=== PATIENT | female | born 1990 | race Caucasian/White ===

== ENCOUNTER 2018-01-27 12:12 | Emergency (ER) | payer SELFPAY ==
--- NOTE | 2018-01-27 12:35 | ER Document Report ---
ED Medical Screen (RME) - General Chief Complaint: Chest Pain Stated Complaint: CHEST PAIN Time Seen by Provider: 01/27/18 12:33 Mode of Arrival: Ambulatory Information source: Patient Notes: This is a 27-year-old female that presents to the emergency room with a fast heartbeat, concerns for "white stool" a few times last week. Patient states the fast heart rate started in November and is been persistent. Patient also states she had some right upper quadrant pain a few days ago but none currently. She denies any nausea or vomiting. She denies any shortness of breath. She does state that she has been under a lot of stress lately at work. She is currently on her period. She denies any calf pain, recent travel. There is no family history of heart arrhythmias, sudden . I have greeted and performed a rapid initial assessment of this patient. A comprehensive ED assessment and evaluation of the patient, analysis of test results and completion of medical decision making process we will be contacted by additional ED providers. TRAVEL OUTSIDE OF THE [place] IN LAST 30 DAYS: No - Related Data Allergies/Adverse Reactions: No Known Allergies Allergy (Unverified 01/27/18 12:13) Physical Exam - Vital signs Vitals: Temp Pulse Resp BP Pulse Ox 99.1 F 120 H 18 131/71 H 99 01/27/18 12:22 01/27/18 12:01/27/18 12:01/27/18 12:22 01/27/18 12:22 Course - Vital Signs Vital signs: Temp Pulse Resp BP Pulse Ox 99.1 F 120 H 18 131/71 H 99 01/27/18 12:22 01/27/18 12:22 01/27/18 12:22 01/27/18 12:22 01/27/18 12:22
--- NOTE | 2018-01-27 13:13 | RADIOLOGY REPORT (SQ) ---
EXAM DESCRIPTION: CHEST 2 VIEWS COMPLETED DATE/TIME: 01/27/2018 12:58 pm REASON FOR STUDY: palpitations COMPARISON: None. TECHNIQUE: Frontal and lateral radiographic views of the chest acquired. NUMBER OF VIEWS: Two view. LIMITATIONS: None. FINDINGS: LUNGS AND PLEURA: No opacities, masses or pneumothorax. No pleural effusion. MEDIASTINUM AND HILAR STRUCTURES: No masses or contour abnormalities. HEART AND VASCULAR STRUCTURES: Heart normal size. No evidence for failure. BONES: No acute findings. HARDWARE: None in the chest. OTHER: No other significant finding. IMPRESSION: NO SIGNIFICANT RADIOGRAPHIC FINDING IN THE CHEST. TECHNICAL DOCUMENTATION: JOB ID: [id number] [employer]- All Rights Reserved Reading location - IP/workstation name: [email or web address]
[2018-01-27 13:22] LABS: ABSOLUTE LYMPHOCYTES (AUTO) 1.4 10^3/uL (0.5-4.7); ABSOLUTE MONOCYTES (AUTO) 0.5 10^3/uL (0.1-1.4); ABSOLUTE NEUT (AUTO) 5.4 10^3/uL (1.7-8.2); BASOPHILS % (AUTO) 0.5 % (0-2); EOSINOPHILS % (AUTO) 0.2 % (0-6); HEMATOCRIT 44.2 % (36.0-47.0); HEMOGLOBIN 15.1 g/dL (12.0-15.5); MEAN CORPUSCULAR HEMOGLOBIN 30.8 pg (27.0-33.4); MEAN CORPUSCULAR HGB CONC 34.1 g/dL (32.0-36.0); MEAN CORPUSCULAR VOLUME 91 fl (80-97); MONOCYTES % (AUTO) 6.9 % (3-13); PLATELET COUNT 233 10^3/uL (150-450); RED BLOOD COUNT 4.89 10^6/uL (3.72-5.28); RED CELL DISTRIBUTION WIDTH 12.6 % (11.5-14.0); SEGMENTED NEUTROPHILS % (AUTO) 73.4 % (42-78); TOTAL CELLS COUNTED % (AUTO) 100 %; WHITE BLOOD COUNT 7.4 10^3/uL (4.0-10.5)
[2018-01-27 13:38] LABS: ALANINE AMINOTRANSFERASE 22 U/L (9-52); ALBUMIN 4.6 g/dL (3.5-5.0); ALKALINE PHOSPHATASE 59 U/L (38-126); ANION GAP 13 (5-19); ASPARTATE AMINO TRANSFERASE 15 U/L (14-36); BILIRUBIN,DIRECT 0.2 mg/dL (0.0-0.4); BILIRUBIN,TOTAL 0.9 mg/dL (0.2-1.3); BLOOD UREA NITROGEN 9 mg/dL (7-20); CALCIUM 9.8 mg/dL (8.4-10.2); CARBON DIOXIDE 26 mmol/L (22-30); CHLORIDE 104 mmol/L (98-107); GLUCOSE 100 mg/dL (75-110); POTASSIUM 4.2 mmol/L (3.6-5.0); SODIUM 143.1 mmol/L (137-145); TOTAL PROTEIN 7.5 g/dL (6.3-8.2)
--- NOTE | 2018-01-27 13:40 | ER Document Report ---
ED General - General Chief Complaint: Chest Pain Stated Complaint: CHEST PAIN Time Seen by Provider: 01/27/18 12:33 Mode of Arrival: Ambulatory Information source: Patient, Relative - mother TRAVEL OUTSIDE OF THE [place] IN LAST 30 DAYS: No - HPI Notes: 27-year-old female presents to the ED with complaints of chest pain that radiates to left upper back, shortness of breath, intermittent right blurred vision, dizziness, with RUQ abd pain. Episodes last for approx 6 hours and then resolves. Abd pain worse after eating. Patient also states she has had two white stools 2 days ago, but has since returned to brown, formed stools. Denies any melena. Last menstrual period was 5 days ago, denies . Patient is not taking any medications. Denies any nausea vomiting, denies any fever or chills. Denies cardiac history. Denies fevers, chills, chest pain, palpitations, shortness of breath, dyspnea, nausea, vomiting, diarrhea, abdominal pain, hematuria,blurred vision, double vision, loss of vision, speech changes, LH, dizziness, syncope, headaches, wheezing, ST, URI, neck pain, weakness, bowel or bladder dysfunction, saddle anesthesia, numbness or tingling in bilateral upper or lower extremities equally, muscle paralysis, weakness in bilateral upper or lower extremities equally or rash. Denies IV drug use. - Related Data Allergies/Adverse Reactions: No Known Allergies Allergy (Unverified 01/27/18 12:13) Past Medical History - General Information source: Patient - Social History Smoking Status: Never Smoker Chew tobacco use (# tins/day): No Frequency of alcohol use: Occasional Drug Abuse: None Family History: Reviewed & Not Pertinent Patient has suicidal ideation: No Patient has homicidal ideation: No Renal/ Medical History: Denies: Hx Peritoneal Dialysis Review of Systems - Review of Systems Constitutional: See HPI EENT: No symptoms reported Cardiovascular: See HPI Respiratory: No symptoms reported Gastrointestinal: See HPI Genitourinary: No symptoms reported Female Genitourinary: No symptoms reported Musculoskeletal: No symptoms reported Skin: No symptoms reported Hematologic/Lymphatic: No symptoms reported Neurological/Psychological: No symptoms reported -: Yes All other systems reviewed and negative Physical Exam - Vital signs Vitals: Temp Pulse Resp BP Pulse Ox 99.1 F 120 H 18 131/71 H 99 01/27/18 12:22 06/09/18 12:22 01/27/18 12:22 01/27/18 12:22 01/27/18 12:22 - Notes Notes: PHYSICAL EXAMINATION: GENERAL: Well-appearing, well-nourished and in no acute distress. HEAD: Atraumatic, normocephalic. EYES: Pupils equal round and reactive to light, extraocular movements intact, conjunctiva are normal. ENT: Nares patent, oropharynx clear without exudates. Moist mucous membranes. NECK: Normal range of motion, supple without lymphadenopathy LUNGS: Breath sounds clear to auscultation bilaterally and equal. No wheezes rales or rhonchi. HEART: Sinus Tachycardia and rhythm without murmurs ABDOMEN: Soft, nontender, nondistended abdomen. No guarding, no rebound. No masses appreciated. Female : deferred Musculoskeletal: Normal range of motion, no pitting or edema. No cyanosis. NEUROLOGICAL: Cranial nerves grossly intact. Normal speech, normal gait. Normal sensory, motor exams PSYCH: Normal mood, normal affect. SKIN: Warm, Dry, normal turgor, no rashes or lesions noted. Course - Re-evaluation Re-evalutation: 01/27/18 16:21 27-year-old female presents for evaluation of tachycardia that she has been doing for the last 2 months with complaints of chest pain that was reproducible on examination. CBC negative for any leukocytosis or anemia, d-dimer negative. CMP negative for any renal or hepatic dysfunction, no electrolyte disturbances. Urinalysis shows patient has ketones, otherwise unremarkable. EKG negative for STEMI, cardiac enzymes negative. TSH T3 and T4 all within normal limits. Patient is not taking any control, right upper quadrant on reexamination is not tender, ultrasound right upper quadrant negative for any acute findings per radiology. Case discussed with Dr. Daniel Munguia, ER attending, regarding pertinent HPI, ROS, clinical exam, diagnostic and laboratory findings. After review, unable to cover any etiology for sinus tachycardia. will have patient follow-up with cardiology will start patient on a low-dose metoprolol 12.5 mg to keep her heart rate within normal range. Discussed with patient to follow a low-fat diet, discussed risks of taking metoprolol. All questions and concerns answered by this provider. Discussed with patient to stay hydrated. Patient refused IV fluids due to not wanting to take them, discussed patient that she does have ketones in her urine however this could be due to patient not having anything to eat today. Low risk for TN , PE, dissecting aortic aneurysm, or any other etiologies. Patient has afebrile , vitals stable and in no distress. After performing a Medical Screening Examination, I estimate there is LOW risk for RUPTURED ESOPHAGUS, PNEUMOTHORAX, PULMONARY EMBOLISM, ACUTE CORONARY SYNDROME, OR THORACIC AORTIC DISSECTION, thus I consider the discharge disposition reasonable. I have reevaluated this patient multiple times and no significant life threatening changes, no signs of toxicity, sepsis or peritonitis are noted. The patient and I have discussed the diagnosis and risks, and we agree with discharging home and close follow- up. We also discussed returning to the Emergency Department immediately if new or worsening symptoms occur with the understanding that symptoms and presentations can change. At this time will discharge with return precautions and follow-up recommendations. Verbal discharge instructions given a the bedside and opportunity for questions given. We have discussed the symptoms which are most concerning (e.g., saddle anesthesia, urinary or bowel incontinence or retention, changing or worsening pain) that necessitate immediate return. Medication warnings reviewed. All questions and concerns answered by this provider. Patient is in agreement with this plan and has verbalized understanding of return precautions and the need for primary care follow-up in the next 24-72 hours. Patient verbalized understanding of plan of care and agree with plan of care. - Vital Signs Vital signs: Temp Pulse Resp BP Pulse Ox 98 F 102 H 16 103/72 99 01/27/18 16:20 01/27/18 16:20 01/27/18 16:20 01/27/18 16:20 01/27/18 16:20 - Laboratory Result Diagrams: 01/27/18 12:42 01/27/18 12:42 Laboratory results interpreted by me: 01/27/18 01/27/18 12:42 15:33 Creatine Kinase 23 L Urine Ketones 80 H Urine Blood MODERATE H Urine Ascorbic Acid 20 H - EKG Interpretation by Id EKG shows normal: Sinus rhythm Rate: Tachycardia Rhythm: NSR Discharge - Discharge Clinical Impression: Sinus tachycardia, Acute costochondritis Condition: Good Disposition: HOME, SELF-CARE Instructions: Beta Blockers ([facility]), Chest Wall Pain ([facility]), Chest Pain of Unclear Cause ([facility]), Sinus Tachycardia ([facility]) Prescriptions: Metoprolol Tartrate [Lopressor 25 mg Tablet] 12.5 mg PO DAILY #30 tab Referrals: GILBERTO CUEVA MD [ACTIVE STAFF] - Follow up in 3-5 days BRINA CORDOVA DO [NO LOCAL MD] - Follow up in 3-5 days
[2018-01-27] MEDS ORDERED: NORMAL SALINE 1000 ML 1,000 ML IV PRN (13:49)
[2018-01-27 13:53] LABS: FREE T3 3.52 pg/mL (2.77-5.27); FREE T4 (FREE THYROXINE) 1.22 ng/dL (0.78-2.19)
[2018-01-27 14:07] LABS: THYROID STIMULATING HORMONE 1.23 uIU/mL (0.47-4.68)
[2018-01-27 14:15] LABS: CREATINE KINASE 23 U/L (30-135)
--- NOTE | 2018-01-27 14:37 | RADIOLOGY REPORT (SQ) ---
EXAM DESCRIPTION: U/S ABDOMEN LTD W/DOPPLER COMPLETED DATE/TIME: 01/27/2018 2:15 pm REASON FOR STUDY: RUQ abd pain, worse after eating COMPARISON: None. TECHNIQUE: Dynamic and static grayscale images acquired of the abdomen and recorded on PACS. Additio romero selected color Doppler and spectral images recorded. LIMITATIONS: None. FINDINGS: PANCREAS: No masses. Visualized pancreatic duct normal caliber. LIVER: No masses. Echotexture normal. LIVER VASCULATURE: Normal directional flow of the main portal vein and hepatic veins. GALLBLADDER: No stones. Normal wall thickness. No pericholecystic fluid. ULTRASOUND-DETECTED PERES'S SIGN: Negative. INTRAHEPATIC DUCTS AND COMMON DUCT: CBD and intrahepatic ducts normal caliber. No filling defects. INFERIOR VENA CAVA: Normal flow. AORTA: No aneurysm. RIGHT KIDNEY: Normal size. Normal echogenicity. No solid or suspicious masses. No hydronephrosis. No calcifications. PERITONEAL AND RIGHT PLEURAL SPACE: No ascites or effusions. OTHER: No other significant findings. IMPRESSION: NORMAL RIGHT UPPER QUADRANT ULTRASOUND. TECHNICAL DOCUMENTATION: JOB ID: [id number] [employer]- All Rights Reserved Reading location - IP/workstation name: [email or web address]
[2018-01-27 14:39] LABS: CREATINE KINASE MB < 0.22 ng/mL (<4.55); TROPONIN I < 0.012 ng/mL
[2018-01-27] MEDS ORDERED: ALPRAZOLAM 0.25 MG TABLET PO ONE (15:03)
[2018-01-27 15:52] LABS: APPEARANCE,URINE CLEAR; BILIRUBIN,URINE NEGATIVE (NEGATIVE); COLOR,URINE STRAW; GLUCOSE, URINE NEGATIVE (NEGATIVE); KETONES,URINE 80 mg/dL (NEGATIVE); LEUKOCYTE ESTERASE,URINE NEGATIVE (NEGATIVE); NITRITE,URINE NEGATIVE (NEGATIVE); PROTEIN,URINE NEGATIVE (NEGATIVE); URINE SPECIFIC GRAVITY 1.008; UROBILINOGEN,URINE NEGATIVE mg/dL (<2.0)
--- NOTE | 2018-01-27 16:23 | EKG REPORT ---
SEVERITY:- ABNORMAL ECG - SINUS TACHYCARDIA GERRI, CONSIDER BIATRIAL ABNORMALITIES CONSIDER RIGHT VENTRICULAR HYPERTROPHY : Confirmed by: Carla Lee MD 27-Jan-2018 16:22:54
[2018-01-27 16:29] VITALS: BP 103/72
== END 2018-01-27 16:25 | disposition home or self-care (01) ==
LOC: ER 12:12
DX: R00.0 Tachycardia, unspecified (principal); M94.0 Chondrocostal junction syndrome [Tietze]; R07.9 Chest pain, unspecified; R06.02 Shortness of breath; H53.8 Other visual disturbances; R42 Dizziness and giddiness; R10.11 Right upper quadrant pain
CPT/HCPCS: 36415; 71046; 76705; 80053; 81001; 81025; 82550; 82553; 83735; 84439; 84443; 84481; 84484; 85025; 85379; 93005; 93010; 93976; 99285

== ENCOUNTER → 2019-07-01 | Outpatient (CLI) | payer OTHER ==
--- NOTE | 2019-07-01 14:46 | RADIOLOGY REPORT (SQ) ---
EXAM DESCRIPTION: KNEE RIGHT 3 VIEWS COMPLETED DATE/TIME: 07/01/2019 2:37 pm REASON FOR STUDY: SWELLING OF RT KNEE JOINT M25.461 EFFUSION, RIGHT KNEE COMPARISON: None. NUMBER OF VIEWS: Three views. TECHNIQUE: AP, lateral, and sunrise patella radiographic images acquired of the right knee. LIMITATIONS: None. FINDINGS: MINERALIZATION: Normal. BONES: No acute fracture or dislocation. No worrisome bone lesions. JOINT: A joint effusion is present. SOFT TISSUES: No soft tissue swelling. No radio-opaque foreign body. OTHER: No other significant finding. IMPRESSION: There is a joint effusion. No acute osseous finding. TECHNICAL DOCUMENTATION: JOB ID: [id number] [employer]- All Rights Reserved Reading location - IP/workstation name: [email or web address]
== END ==
LOC: OD 14:17
PROVIDERS: ATTEND Nurse Practitioner Acute Care
DX: M25.461 Effusion, right knee (principal)